=== PATIENT | male | born 1975 | race Caucasian/White ===

== ENCOUNTER 2019-05-23 21:04 | Emergency (ER) | payer OTHER, SELFPAY ==
[2019-05-23 21:05] VITALS: BP 163/88; PULSE 88; RESP 16; TEMP 36.6; O2SAT 97; BMI 41.5
--- NOTE | 2019-05-23 21:15 | ED.VIS.GEN ---
History of Present Illness Chief Complaint: Disclocation Detail of Chief Complaint: Left third finger injury Informant: Patient Onset: Today Current Severity: Mild Maximum Severity: Moderate Narrative: Patient presents with injury to his left third finger. He was trying to remove a knee brace on his right knee and was pushing it down his leg with his left hand. His left third finger got caught. He now has a flexion deformity at the DIP joint of the left third finger and is unable to straighten it. Past Medical History - Allergies and Home Meds Allergies/Adverse Reactions: Allergies lactose Adverse Reaction (Verified 05/23/19 21:06) Abd cramps/diarrhea Primary Care Physician: NOT,DEFINED [NON-STAFF] - Prior records reviewed: Yes Review of Systems General: Denies: Chills, Fever Eyes: Denies: Visual changes - bilaterally ENT: Denies: Bilateral ear pain Cardiovascular: Denies: Chest pain Respiratory: Denies: Dyspnea Gastrointestinal: Denies: Abdominal pain Genitourinary: Denies: Dysuria Musculoskeletal: Reports: Extremity Pain Skin: Denies: Rash Neurological: Denies: Parasthesia Allergy: Denies: Uticaria Physical Exam Vital Signs/Narrative: Vital Signs Temp Pulse Resp BP Pulse Ox 05/23/19 21:05 98 F 88 16 163/88 H 97 Inital Vital Signs reviewed: Yes General: Well nourished, Well developed Head: Normocephalic ENT: Moist mucous membranes Neck: Supple Cardiovascular: Regular rate, Regular rhythm Respiratory: No distress, CTA bilaterally Abdomen: Soft, Nontender Extremities: - - Left third finger presents with swan-neck deformity. He has forced flexion at the DIP joint with extension of the PIP joint. He is unable to straighten his finger. He does have good cap refill and sensation distally. Skin: Normal color Neurological: Alert, Oriented x3 Psychological: Normal affect Diagnostic/Tx/Re-eval Impressions Hand X-Ray 05/23/19 21:17 IMPRESSION: Possible hyperflexion at the distal interphalangeal joint of the third finger. Mild soft tissue swelling of the third finger. Electronically Signed: Larry Kunz DO at 21:31 EDT Tel [phone], Service support , 05/23/19 21:17 Hand Min 3 Views [RAD] Stat - Medical Decision Making Patient was given naproxen for pain. Finger was splinted in extension. Patient was noted not to remove the splint until seen by orthopedics. He will be referred to Dr. Ratliff, on-call for orthopedics. He may follow-up with an orthopedist in [place] where he works as well. ED Disposition - Plan for ED Patient: Disposition: Home or Assisted Living Diagnosis: Injury of extensor tendon of left hand Instructions: ED Rupture Tendon Finger Referrals: Rebel Ratliff MD [STAFF PHYSICIAN] - 1 Week
[2019-05-23] MEDS: Naproxen 500 MG Tablet PO (21:17)
--- NOTE | 2019-05-23 21:17 | RAD_ITS ---
STUDY: X-RAY - LEFT HAND REASON FOR EXAM: Male, 44 years old. INJURY TO LEFT MIDDLE FINGER -- FELT TIP OF FINGER POP TECHNIQUE: 3 view(s) of the hand. COMPARISON: None. FINDINGS: Normal radiocarpal articulation. Normal distal radioulnar joint. Normal visualized carpal bones. Normal carpal articulations Normal carpometacarpal articulation of the thumb. Normal second through fifth carpometacarpal joints. Normal metacarpi. Normal metacarpophalangeal joint of the thumb. Normal interphalangeal joint of the thumb. Normal proximal and distal phalanges of the thumb. Normal metacarpophalangeal joints of the second through fifth fingers. Normal proximal and distal interphalangeal joints of the second through fifth fingers. Normal phalanges of the second through fifth fingers. Possible hyperflexion at the distal interphalangeal joint of the third finger. Mild soft tissue swelling of the third finger. RAD/Hand Min 3 Views IMPRESSION: Possible hyperflexion at the distal interphalangeal joint of the third finger. Mild soft tissue swelling of the third finger. Electronically Signed: Larry Kunz DO at 21:31 EDT Tel [phone], Service support ,
== END 2019-05-23 22:01 | disposition home or self-care (01) ==
PROVIDERS: Emergency Provider Emergency Medicine
DX: M20.032 Swan-neck deformity of left finger(s) (principal)
CPT/HCPCS: 73130; 99283